=== PATIENT | female | born 1960 | race Caucasian/White ===

== ENCOUNTER 2021-09-27 16:38 | Observation (INO) | payer OTHER ==
[~2021-09-27] VITALS: Ht 172.7 cm; Wt 75.4 kg
[2021-09-27 17:28] LABS: HEMOGLOBIN 13.3 gm/dl (12.3-15.3); RED BLOOD COUNT 4.25 M/UL (4.00-5.10); WHITE BLOOD COUNT 9.4 K/UL (4.5-11.0)
[2021-09-27 18:00] LABS: BUN/CREATININE RATIO 14 (0-10)
[2021-09-28 02:20] LABS: RED BLOOD COUNT 4.22 M/UL (4.00-5.10); WHITE BLOOD COUNT 7.8 K/UL (4.5-11.0)
[2021-09-28 03:27] LABS: BUN/CREATININE RATIO 15 (0-10)
[2021-09-28] MEDS ORDERED: HYDROCHLOROTHIA25 MG PO (16:29)
[2021-09-28] MEDS ORDERED: CELEBREX200 MG PO (16:29)
[2021-09-28] MEDS ORDERED: MECLIZINE HCL25 MG PO (16:30)
[2021-09-28] MEDS ORDERED: PROZAC20 MG PO (16:31)
[2021-09-28] MEDS ORDERED: METHOCARBAMOL500 MG PO (16:32)
[2021-09-28] MEDS ORDERED: GABAPENTIN300 MG PO (16:32)
[2021-09-28] MEDS ORDERED: NIFEDIPINE ER90 M1 PO (16:33)
[2021-09-28] MEDS ORDERED: ATORVASTATIN CA40 MG PO (16:34)
[2021-09-28] MEDS ORDERED: PLAVIX 75 MG TA75 MG PO (16:34)
[2021-09-28] MEDS ORDERED: SUMATRIPTAN SUC50 MG PO (16:38)
[2021-09-28] MEDS ORDERED: LOSARTAN POTAS100 MG PO (16:38)
[2021-09-28] MEDS ORDERED: FOLIC ACID1 MG PO (16:39)
[2021-09-28] MEDS ORDERED: TEMAZEPAM15 MG PO (16:44)
[2021-09-28] MEDS ORDERED: KEPPRA750 MG PO (16:44)
[2021-09-28] MEDS ORDERED: ONDANSETRON HCL8 MG PO (16:45)
== END 2021-09-28 18:17 | disposition home or self-care (01) ==
LOC: ER1 16:38 → CDU 19:07 → MED SURG 4 19:07
PROVIDERS: Emergency Medicine; Internal Medicine; ADMIT Internal Medicine Infectious Disease
DX: R20.0 Anesthesia of skin (principal); R53.1 Weakness; I69.954 Hemiplegia and hemiparesis following unspecified cerebrovascular disease affecting left non-dominant side; I69.998 Other sequelae following unspecified cerebrovascular disease; I69.911 Memory deficit following unspecified cerebrovascular disease; H53.8 Other visual disturbances; E87.6 Hypokalemia; I10 Essential (primary) hypertension; G40.909 Epilepsy, unspecified, not intractable, without status epilepticus; F32.A Depression, unspecified; E78.5 Hyperlipidemia, unspecified; J44.9 Chronic obstructive pulmonary disease, unspecified; Z88.5 Allergy status to narcotic agent; Z88.7 Allergy status to serum and vaccine; Z88.8 Allergy status to other drugs, medicaments and biological substances; Z87.19 Personal history of other diseases of the digestive system; Z86.2 Personal history of diseases of the blood and blood-forming organs and certain disorders involving the immune mechanism; Z79.02 Long term (current) use of antithrombotics/antiplatelets; Z79.1 Long term (current) use of non-steroidal anti-inflammatories (NSAID); Z79.899 Other long term (current) drug therapy
CPT/HCPCS: ECHO; 36415; 70450; 70496; 70498; 70551; 71045; 80053; 80061; 82550; 82553; 83735; 84100; 84132; 84439; 84443; 84484; 85025; 85610; 85730; 92610; 93005; 93306; 97161; 97165; 99285; G0378; Q9967